=== PATIENT | female | born 1950 | race African-American/Black ===

== ENCOUNTER 2024-01-13 11:01 | Emergency (ER) | payer MEDICARE, BC ==
[~2024-01-13] VITALS: Ht 157.5 cm; Wt 73.0 kg
[2024-01-13 11:06] VITALS: BP 115/81; PULSE 62; RESP 16; TEMP 98; O2SAT 98
== END 2024-01-13 13:13 | disposition left against medical advice (07) ==
LOC: ER 11:54
DX: R10.9 Unspecified abdominal pain (principal); Z53.21 Procedure and treatment not carried out due to patient leaving prior to being seen by health care provider
CPT/HCPCS: 99281